=== PATIENT | female | born 1955 | race Caucasian/White ===

== ENCOUNTER 2019-12-27 13:38 | Outpatient (CLI) | payer BC, SELFPAY ==
--- NOTE | ~2019-12-27 | MM_ITS ---
EXAMINATION: MM screening josé BI w norbert HISTORY: Screening mammogram TECHNIQUE: Craniocaudal and mediolateral oblique 3-D tomosynthesis images were obtained and synthetic 2-D images were generated. CAD analysis was submitted and interpreted. COMPARISON: 11/29/2018, 08/27/2016, 06/26/2015 bilateral digital screening mammogram examinations BREAST PARENCHYMAL COMPOSITION: The breasts are almost entirely fatty. FINDINGS: There is no evidence of suspicious mass, calcification, or architectural distortion to sugg est malignancy in either breast. There has been no suspicious interval change. IMPRESSION: 1. No mammographic evidence of malignancy. 2. Recommend routine screening mammography in one year. BI-RADS Category 1: Negative Reviewed, dictated and finalized at location A.
== END 2019-12-27 13:39 | disposition home or self-care (01) ==
LOC: ANHIMG 13:40
PROVIDERS: PCP Family Medicine Adolescent Medicine; Visit Provider Obstetrics & Gynecology
DX: Z12.31 Encounter for screening mammogram for malignant neoplasm of breast (principal)
CPT/HCPCS: 77063; 77067

== ENCOUNTER 2020-04-18 12:36 | Outpatient (CLI) | payer MEDICARE, BC, SELFPAY ==
--- NOTE | ~2020-04-18 | DEXA_ITS ---
Bone Density Report Name: Soni Guevara Age: 65 Sex: Female Ethnicity: White Date of : 1955 Indication: postmenopausal; hysterectomy; Referring Provider: Grey Barraza Study: Bone densitometry was performed. Exam Date: April 18, 2020 Accession number: [id number] Bone Density: Region BMD T-score Z-score Classification AP Spine (L1, L2, L3) 0.896 -1.1 0.6 Osteopenia Femoral Neck (Left) 0.756 -0.8 0.7 Normal Total Hip (Left) 0.914 -0.2 1.0 Normal Total Hip Bilateral Avg 0.889 -0.4 0.8 Normal Femoral Neck (Right) 0.711 -1.2 0.3 Osteopenia Total Hip (Right) 0.863 -0.6 0.6 Normal World Health Organization criteria for BMD impression classify patients as: Normal (T-score at or above -1.0), Osteopenia (T-score between -1.0 and -2.5), or Osteoporosis (T-score at or below -2.5). 10-year Fracture Risk(1): Major Osteoporotic Fracture 8.3% Hip Fracture 1.2% Reported Risk Factors: [place] (), Neck BMD=0.711, BMI=27.4, smoking (1) FRAX(R) Version 3.08. Fracture probability calculated for an untreated patient. Fracture probability may be lower if the patient has received treatment. Previous Exams: Region Exam Age BMD T-score BMD Change BMD Change Date g/cm2 vs Baseline vs Previous AP Spine(L1, L2, L3) 04/18/2020 65 0.896 -1.1 -0.332(-27.0%) -0.273(-23.4%) 12/01/2011 56 1.170 1.4 -0.058(-4.8%)# -0.073(-5.8%)# 10/23/2009 54 1.242 2.0 0.014(1.2%) 0.014(1.2%) 09/07/2007 52 1.228 1.9 Total Hip(Left) 04/18/2020 65 0.914 -0.2 -0.211(-18.8%) -0.213(-18.9%) 12/01/2011 56 1.127 1.5 0.002(0.1%)# 0.018(1.6%)# 10/23/2009 54 1.109 1.4 -0.016(-1.4%) -0.016(-1.4%) 09/07/2007 52 1.125 1.5 Total Hip(Right) 04/18/2020 65 0.863 -0.6 -0.174(-16.8%) -0.134(-13.5%) 12/01/2011 56 0.998 0.5 -0.040(-3.9%)# -0.067(-6.3%)# 10/23/2009 54 1.064 1.0 0.027(2.6%) 0.027(2.6%) 09/07/2007 52 1.038 0.8 *Denotes significance at 95% confidence level, LSC for AP Spine = 0.022 g/cm2, LSC for Total Hip = 0.027 g/cm2 Clinical Information Provided by Patient: Smokes Has the following medical conditions: Hysterectomy Patient maximum height was 67 No regular weight bearing exercise Drinks caffeinated beverages Onset of menses at age 13 Number of children 3 Impression: The patient has low bone mass, based on the Right Femoral Neck T-score. The patient has an estim
== END 2020-04-18 12:37 | disposition home or self-care (01) ==
LOC: ANHIMG 12:39
PROVIDERS: PCP Family Medicine Adolescent Medicine; Visit Provider Family Medicine Adolescent Medicine
DX: N95.1 Menopausal and female climacteric states (principal); M85.851 Other specified disorders of bone density and structure, right thigh; M85.88 Other specified disorders of bone density and structure, other site
CPT/HCPCS: 77080

== ENCOUNTER 2021-04-10 01:07 | Day surgery (SDC) | payer MEDICARE, SELFPAY ==
[2021-03-27 15:07] VITALS: BMI 27.1
--- NOTE | 2021-04-09 11:33 | PM.HPGS ---
History of Present Illness History of Present Illness Consent: Risks, benefits, and alternatives have been discussed and questions answered. Patient agrees to proceed with procedure. Chief complaint: neoplasm screening Narrative: Soni Guevara is a 66 year old female Referred for colon cancer screening Review of Systems Review of Systems: All systems reviewed & are unremarkable except as noted in HPI and below PMFSH Past Medical History Medical History Diabetes type 2, controlled Hypertension Mixed hyperlipidemia Surgical History Surgical History History of partial hysterectomy Family History Family History Sibling , age 47 Acute myocardial infarction Heart disease Hypertension Mother Acute myocardial infarction Heart disease Grandparent Breast cancer Father Diabetes mellitus Social History Social History Years smoked: 10 Smoking status: Current every day smoker Tobacco type: cigarettes Alcohol intake: current Alcohol use details: Socially - 1-2 times per month Living arrangements: with family Additional living arrangements comments: Additional occupation/education comments: Retiring in july, Formerly [employer] Gender identity (if verbalized by the patient): Female Sexual Orientation (if Verbalized by the Patient): Straight or Heterosexual Spiritual care concerns: No Agree to blood products: Yes Meds Home Medications and Allergies Home Medications Medication Instructions Recorded Confirmed Type atorvastatin 10 mg tablet 10 mg PO DAILY #90 tablet 03/17/21 03/27/21 Rx bupropion HCl 150 mg tablet,12 hr 150 mg PO BID #180 tablet 03/17/21 03/27/21 Rx sustained-release lisinopril 20 mg tablet 20 mg PO DAILY #90 tablet 03/17/21 03/27/21 Rx metformin 500 mg tablet 500 mg PO DAILY #90 tablet 03/17/21 03/27/21 Rx Allergies Allergy/AdvReac Type Severity Reaction Status Date / Time No Known Allergies Allergy Mild Verified 04/10/21 07:53 Exam Resp: Auscultation: clear to auscultation bilaterally Cardio: Rate: regular rate Rhythm: regular rhythm GI: GI Palp: Yes Soft to palpation and No Tenderness to palpation present (GI) Assessment and Plan Assessment and plan (1) Colon cancer screening: Code(s): Z12.11 - Encounter for screening for malignant neoplasm of colon Status: Acute Assessment and Plan: Colonoscopy with possible biopsy or polypectomy or cautery or injection of substances.
[2021-04-10 07:54] VITALS: BP 122/65; PULSE 87; RESP 16; TEMP 36.7; O2SAT 100
[2021-04-10] MEDS: LACTATED RINGERS 1,000 ML 150 ML IV CONT (08:13)
[2021-04-10 08:17] LABS: Glucose Point of Care 218 mg/dl (65-105)
--- NOTE | 2021-04-10 08:30 | WPDANESEPPF ---
Anes - Initial Pre Proc Eval Procedure: Operation Date: 04/10/21 09:00 Proposed Procedures p Screening Colonoscopy - Pérez Craig MD Date/Time: 04/10/21 08:30 Surgeon: Pérez Craig MD Pre Op Diagnosis: neoplasm screening Patient Data Age: 66 Gender: F Height: 1.7 m Weight: 77.3 kg Last Vital Signs Temp 36.7 C 04/10/21 07:54 Pulse 87 04/10/21 07:54 Resp 16 04/10/21 07:54 BP 122/65 04/10/21 07:54 Pulse Ox 100 04/10/21 07:54 Allergies Allergy/AdvReac Type Severity Reaction Status Date / Time No Known Allergies Allergy Mild Verified 04/10/21 07:53 Home Medications Medication Instructions Recorded Confirmed Type atorvastatin 10 mg tablet 10 mg PO DAILY #90 tablet 03/17/21 03/27/21 Rx bupropion HCl 150 mg tablet,12 hr 150 mg PO BID #180 tablet 03/17/21 03/27/21 Rx sustained-release lisinopril 20 mg tablet 20 mg PO DAILY #90 tablet 03/17/21 03/27/21 Rx metformin 500 mg tablet 500 mg PO DAILY #90 tablet 03/17/21 03/27/21 Rx Laboratory Tests 04/10/21 08:04 POC Capillary Glucose 218 mg/dl H mg/dl (65-105) Patient hx anesthesia problems: none Family hx anesthesia problems: none Results Review: All pre-operative results and documents have been reviewed as part of the pre-operative evaluation. [facility] Past Medical History Medical History Diabetes type 2, controlled Hypertension Mixed hyperlipidemia Surgical History Surgical History History of partial hysterectomy Family History Family History Sibling , age 47 Acute myocardial infarction Heart disease Hypertension Mother Acute myocardial infarction Heart disease Grandparent Breast cancer Father Diabetes mellitus Social History Social History Years smoked: 10 Smoking status: Current every day smoker Tobacco type: cigarettes Alcohol intake: current Alcohol use details: Socially - 1-2 times per month Living arrangements: with family Additional living arrangements comments: Additional occupation/education comments: Retiring in july, [employer] Gender identity (if verbalized by the patient): Female Sexual Orientation (if Verbalized by the Patient): Straight or Heterosexual Spiritual care concerns: No Agree to blood products: Yes Anes - Eval Final PreProcedure Day of Procedure 04/10/21 08:30 Patient weight: overweight Heart: regular rate and rhythm Lungs: clear to auscultation Airway: Mallampati scale class II Neurological: alert and oriented Last oral intake: >/= 8 hours ASA classification: III Emergent: no Anesthetic plan: proceed Anesthesia type and monitoring: general GIVS and standard monitoring Results Review: All pre-operative results and documents have been reviewed as part of the pre-operative evaluation. Informed Consent: The patient's anesthetic plan and its attendant risks and benefits were discussed with the patient/family/POA. Questions were solicited and answers provided to the satisfaction of the patient/family/POA.
[2021-04-10 09:17] VITALS: BP 111/56; PULSE 79; RESP 21; O2SAT 98
[2021-04-10 09:27] VITALS: BP 93/37; PULSE 75; RESP 22; O2SAT 100
[2021-04-10 09:37] VITALS: BP 123/77; PULSE 74; RESP 19; O2SAT 100
== END 2021-04-10 09:45 | disposition home or self-care (01) ==
PROVIDERS: PCP Family Medicine Adolescent Medicine; Visit Provider Internal Medicine Gastroenterology
PROC: 0DJD8ZZ Inspection of Lower Intestinal Tract, Via Natural or Artificial Opening Endoscopic (ICD-10-PCS; CPT 45378; principal; 2021-04-10 09:00)
DX: Z12.11 Encounter for screening for malignant neoplasm of colon (principal); K57.30 Diverticulosis of large intestine without perforation or abscess without bleeding; K62.1 Rectal polyp; E11.9 Type 2 diabetes mellitus without complications; I10 Essential (primary) hypertension; E78.2 Mixed hyperlipidemia; Z79.84 Long term (current) use of oral hypoglycemic drugs; F17.210 Nicotine dependence, cigarettes, uncomplicated
CPT/HCPCS: 45385; 82948; 88305; J2704; J7120

== ENCOUNTER 2021-07-18 15:36 | Outpatient (CLI) | payer MEDICARE, SELFPAY ==
--- NOTE | ~2021-07-18 | MM_ITS ---
EXAMINATION: MM screening josé BI w norbert HISTORY: Screening TECHNIQUE: Craniocaudal and mediolateral oblique 3-D tomosynthesis images were obtained and synthetic 2-D images were generated. CAD analysis was submitted and interpreted. COMPARISON: Comparison to multiple prior studies sequentially, with oldest reviewed study dated 11/30. BREAST PARENCHYMAL COMPOSITION: There are scattered areas of fibroglandular density. FINDINGS: There is no evidence of suspicious mass, calcification, or architectural distortion to sugg est malignancy in either breast. There has been no suspicious interval change. IMPRESSION: 1. No mammographic evidence of malignancy. 2. Recommend routine screening mammography in one year. BI-RADS Category 1: Negative Reviewed, dictated and finalized at location A.
== END 2021-07-18 15:37 | disposition home or self-care (01) ==
PROVIDERS: PCP Family Medicine Adolescent Medicine; Visit Provider Obstetrics & Gynecology
DX: Z12.31 Encounter for screening mammogram for malignant neoplasm of breast (principal)
CPT/HCPCS: 77063; 77067

== ENCOUNTER 2022-09-03 09:43 | Outpatient (CLI) | payer MEDICARE, SELFPAY ==
--- NOTE | ~2022-09-03 | MM_ITS ---
EXAMINATION: MM screening josé BI w norbert HISTORY: Screening mammogram TECHNIQUE: Craniocaudal and mediolateral oblique 3-D tomosynthesis images were obtained and synthetic 2-D images were generated. CAD analysis was submitted and interpreted. COMPARISON: 07/18/2021, 12/27/2019, 11/25/2018 bilateral screening mammogram examinations BREAST PARENCHYMAL COMPOSITION: The breasts are almost entirely fatty. FINDINGS: There is no evidence of suspicious mass, calcification, or architectural distortion to sugg est malignancy in either breast. There has been no suspicious interval change. IMPRESSION: 1. No mammographic evidence of malignancy. 2. Recommend routine screening mammography in one year. BI-RADS Category 1: Negative Reviewed, dictated and finalized at location A.
== END 2022-09-03 09:44 | disposition home or self-care (01) ==
PROVIDERS: PCP Family Medicine Adolescent Medicine; Visit Provider Obstetrics & Gynecology
DX: Z12.31 Encounter for screening mammogram for malignant neoplasm of breast (principal)
CPT/HCPCS: 77063; 77067

== ENCOUNTER 2023-01-09 18:36 | Emergency (ER) | payer MEDICARE, SELFPAY ==
--- NOTE | ~2023-01-09 | CT_ITS ---
EXAMINATION: CT ankle RT wo con, CT foot RT wo con DATE: 01/09/2023 21:03 INDICATION: Right calcaneal fracture post fall TECHNIQUE: High resolution computed tomography (CT) of the right ankle was performed without intravenous contras t. Additional sagittal and coronal reconstructions were performed. Automated exposure control and ite rative reconstruction technique were employed. The dose-length product was 433.59 mGy-cm. 2. High resolution CT of the right foot was performed without intravenous contrast. Additional sagitt al and coronal reconstructions were performed. Automated exposure control and iterative reconstructio n technique were employed. The dose-length product was 377.91 mGy-cm. COMPARISON: Radiographs dated 01/09/2023 FINDINGS: There is a comminuted joint depression type fracture of the calcaneus. There are several fracture virginie mya involving the posterior facet of the subtalar joint. This includes a fracture line extending ante roposteriorly across the central aspect of the posterior facet with up to 3-4 mm fracture gap posteri elida and with up to 3 mm step-off anteriorly. There is minimally displaced fracture extending across the base of the sustentaculum krisatl as well as an additional more anterior sagittally directed minimal ly displaced fracture plane which extends to involve the medial aspect of the articular surface at th e calcaneocuboid joint. There is a small minimally displaced fracture arising from the lateral proces s of the calcaneus along the tip of the lateral malleolus. No other fractures identified. Mild osteoa rthritis at the ankle joint as well as the first metatarsophalangeal and a few tarsal metatarsal join ts. Moderate-sized ankle and subtalar joint effusion. IMPRESSION: 1. Comminuted joint depression type calcaneal fracture, type II B by Camara classification. 2. Minimally displaced fracture of the lateral process of the calcaneus along the tip of the lateral malleolus. Reviewed, dictated and finalized at location A. IMPRESSION: 1. Comminuted joint depression type calcaneal fracture, type II B by Camara cl assification. 2. Minimally displaced fracture of the lateral process of the calcaneus along t he tip of the lateral malleolus.
--- NOTE | ~2023-01-09 | XR_ITS ---
EXAMINATION: XR ankle RT min 3V, XR foot RT min 3V DATE: 01/09/2023 19:06 INDICATION: Right foot and ankle pain post fall from ladder TECHNIQUE: 1. Anteroposterior, mortise, additional oblique and lateral view of the right ankle were obtained. 2. Dorsoplantar, two oblique and lateral views of the right foot were obtained. COMPARISON: None. FINDINGS: Comminuted joint depression type fracture of the right calcaneus with flattening of Boehler's angle. This includes an up to 3 mm wide sagittally oriented fracture plane which extends to the lateral side of the articular surface at the calcaneocuboid articulation. There is also widening of the posterior facet of the subtalar joint. No other fractures identified. 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 Small p lantar calcaneal spur. Soft tissue swelling about the hindfoot. The soft tissues are unremarkable. IMPRESSION: 1. Comminuted intra-articular fracture of the calcaneus. Reviewed, dictated and finalized at location A. IMPRESSION: 1. Comminuted intra-articular fracture of the calcaneus.
[2023-01-09 18:37] VITALS: BP 184/93; PULSE 91; RESP 16; TEMP 36.8; O2SAT 100
--- NOTE | 2023-01-09 20:49 | PC.NURSE ---
Pt taken to CT via w/c at this time.
--- NOTE | 2023-01-09 21:08 | ED.GENADULT ---
HPI - General Adult General Chief complaint: Extremity Injury, Lower Stated complaint: RLE injury after fall Time Seen by Provider: 01/09/23 19:51 History of Present Illness HPI narrative: Patient is a six 7-year-old female who presents to the emergency department this afternoon after falling off of a 6 foot ladder. Patient states that she fell backward and then landed on her right foot. Patient immediately felt a sharp pain in her right heel. She denies any additional injuries and denies any pain in the rest of her joints. Patient was unable to get back up or put any weight on her right foot. She denies hitting her head or losing any consciousness. Patient also denies any blood thinner use. Patient denies any chest pain, shortness of breath, nausea, vomiting, abdominal pain, dysuria, hematuria, constipation, diarrhea, melena, hematochezia, fevers or chills. She also denies any headaches, dizziness, lightheadedness, blurry visions, focal weakness, numbness and or tingling. There are no other modifying, alleviating, or precipitating factors at this time. Related Data Allergies Allergy/AdvReac Type Severity Reaction Status Date / Time No Known Allergies Allergy Mild Verified 01/09/23 19:20 Review of Systems Review of Systems: All systems are reviewed and are negative unless stated otherwise in the HPI. [facility] Past Medical History Medical History Diabetes type 2, controlled Hypertension Mixed hyperlipidemia Screening mammogram, encounter for Surgical History Surgical History H/O colonoscopy (~05/06/21) History of ovarian cystectomy (03/14/03) lscope lt ovarian cystectomy/adhesiolysis History of total abdominal hysterectomy (04/18/03) YESICA BSO--extensive adhesiolysis Family History Family History Sibling , age 47 Acute myocardial infarction Heart disease Hypertension Mother Acute myocardial infarction Heart disease Grandparent Breast cancer Father Diabetes mellitus Hypertension Heart disease Social History Social History Smoking packs per day: 0.5 Smoking cigarettes per day: 10.0 Years smoked: 10 Smoking pack-years: 5.00 Smoking status: Current every day smoker Tobacco type: cigarettes Alcohol intake: current Alcohol use details: Socially - 1-2 times per month Substance use: never Substance use type: does not use Living arrangements: other Additional living arrangements comments: Occupation/Education: retired 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 HEENT: PERRL, no rhinorrhea, no post nasal drip, oropharynx clear. Neck: Trachea midline, no JVD, no lymphadenopathy. Cardiovascular: Regular rate and rhythm, no murmurs, rubs or gallops, no peripheral edema. Respiratory: Clear to auscultation bilaterally, no tachypnea, no wheezing, no rhonchi, no rubs, no respiratory distress. Abdomen: Soft, nontender, nondistended, no rebound, no guarding, no peritoneal signs. Musculoskeletal: Significant swelling surrounding the right ankle joint, no overlying abrasion or laceration or evidence of an open fracture, right PT pulse difficult to palpate due to swelling, intact right DP pulse, intact sensation over the dorsum, plantar, and webspace between the first and second metatarsal, no tenderness to palpation over the proximal fibula, patient is neurovascularly intact and able to move all 5 of her toes in her right foot. Back: No midline tenderness t
[2023-01-09] MEDS: HYDROcodone/acetaminophen (*CRX) 5-325 MG TABLET 1 TAB PO (21:52)
--- NOTE | 2023-01-15 19:04 | PC.NURSE ---
Late Entry VOR[facility] by Dr. Nieves place short leg posterior and stirrup splint to right leg on 01/09/23. Placed on 01/09/23 at 2155.
== END 2023-01-09 22:08 | disposition home or self-care (01) ==
PROVIDERS: Emergency Provider Emergency Medicine; PCP Family Medicine Adolescent Medicine
DX: S92.061A Displaced intraarticular fracture of right calcaneus, initial encounter for closed fracture (principal); S82.61XA Displaced fracture of lateral malleolus of right fibula, initial encounter for closed fracture; E11.9 Type 2 diabetes mellitus without complications; I10 Essential (primary) hypertension; E78.2 Mixed hyperlipidemia; F17.210 Nicotine dependence, cigarettes, uncomplicated; Z90.710 Acquired absence of both cervix and uterus; Z90.722 Acquired absence of ovaries, bilateral; Z90.79 Acquired absence of other genital organ(s); W11.XXXA Fall on and from ladder, initial encounter
CPT/HCPCS: 29515; 73610; 73630; 73700; 99284; A9270

== ENCOUNTER 2023-04-29 13:39 | Outpatient (CLI) | payer MEDICARE, SELFPAY ==
--- NOTE | ~2023-04-29 | DEXA_ITS ---
Bone Density Report Name: LILIANA SHEA Age: 68 Sex: Female Ethnicity: White Date of : 1955 Indication: postmenopausal; screening for osteoporosis; hysterectomy; Referring Provider: HAL CROW Study: Bone densitometry was performed. Exam Date: April 29, 2023 Accession number: [id number] Bone Density: Region BMD T-score Z-score Classification AP Spine(L2, L3, L4) 0.982 -0.9 1.2 Normal Femoral Neck (Left) 0.721 -1.2 0.5 Osteopenia Total Hip (Left) 0.945 0.0 1.4 Normal Femoral Neck (Right) 0.708 -1.3 0.4 Osteopenia Total Hip (Right) 0.782 -1.3 0.1 Osteopenia Total Hip Mean 0.863 -0.7 0.8 Normal World Health Organization criteria for BMD impression classify patients as: Normal (T-score at or above -1.0), Osteopenia (T-score between -1.0 and -2.5), or Osteoporosis (T-score at or below -2.5). 10-year Fracture Risk(1): Major Osteoporotic Fracture 9.2% Hip Fracture 1.6% Reported Risk Factors: [place] (), Neck BMD=0.708, BMI=25.5, smoking (1) FRAX(R) Version 3.08. Fracture probability calculated for an untreated patient. Fracture probability may be lower if the patient has received treatment. Previous Exams: Region Exam Age BMD T-score BMD Change BMD Change Date g/cm2 vs Baseline vs Previous Total Hip(Left) 04/29/2023 68 0.945 0.0 0.031 (3.4%)# 0.031 (3.4%)# 04/18/2020 65 0.914 -0.2 Total Hip(Right) 04/29/2023 68 0.782 -1.3 -0.082 (-9.5%) -0.082 (-9.5%) 04/18/2020 65 0.863 -0.6 *Denotes significance at 95% confidence level, LSC for Total Hip = 0.027 g/cm2 # Denotes dissimilar scan types or analysis methods Clinical Information Provided by Patient: Smokes Has used the following medications: Vitamin D, Calcium Has the following medical conditions: Hysterectomy Patient maximum height was 66 No regular weight bearing exercise Drinks caffeinated beverages Onset of menses at age 14 Number of children 3 Impression: The patient has low bone mass, based on the Right Total Hip T-score. The patient has an estimated ten-year risk of hip fracture of 1.6% and an estimated ten-year risk of major fracture of 9.2%, based on the WHO FRAX algorithm. The patient has risk factors, including: smoking. No significant bone loss was observed. Discussion: BONE DENSITY IS LOW AT ONE OR MORE SKELETAL SITES. This patient's lowest T-score is low at one or more skeletal sites. It meets the World Health Organization's (WHO) criteria for ?low bon
== END 2023-04-29 13:40 | disposition home or self-care (01) ==
PROVIDERS: PCP Family Medicine Adolescent Medicine; Visit Provider Family Medicine Adolescent Medicine
DX: Z78.0 Asymptomatic menopausal state (principal); M85.852 Other specified disorders of bone density and structure, left thigh; M85.851 Other specified disorders of bone density and structure, right thigh
CPT/HCPCS: 77080

== ENCOUNTER 2023-10-06 14:43 | Outpatient (CLI) | payer MEDICARE, SELFPAY ==
--- NOTE | ~2023-10-06 | MM_ITS ---
EXAMINATION: MM screening josé BI w norbert HISTORY: Screening TECHNIQUE: Craniocaudal and mediolateral oblique 3-D tomosynthesis images were obtained and synthetic 2-D images were generated. CAD analysis was submitted and interpreted. COMPARISON: Comparison to multiple prior studies sequentially, with oldest reviewed study dated 06/25. BREAST PARENCHYMAL COMPOSITION: Not dense: There are scattered areas of fibroglandular density. FINDINGS: There is no evidence of suspicious mass, calcification, or architectural distortion to sugg est malignancy in either breast. There has been no suspicious interval change. IMPRESSION: 1. No mammographic evidence of malignancy. 2. Recommend routine screening mammography in one year. BI-RADS Category 1: Negative Reviewed, dictated and finalized at location B.
== END 2023-10-06 14:44 | disposition home or self-care (01) ==
LOC: ANHIMG 14:45
PROVIDERS: PCP Family Medicine Adolescent Medicine; Visit Provider Obstetrics & Gynecology
DX: Z12.31 Encounter for screening mammogram for malignant neoplasm of breast (principal)
CPT/HCPCS: 77063; 77067

== ENCOUNTER 2024-10-09 08:49 | Outpatient (CLI) | payer MEDICARE, SELFPAY ==
--- NOTE | ~2024-10-09 | MM_ITS ---
EXAMINATION: MM screening josé BI w norbert HISTORY: Screening TECHNIQUE: Craniocaudal and mediolateral oblique 3-D tomosynthesis images were obtained and synthetic 2-D images were generated. CAD analysis was submitted and interpreted. COMPARISON: Comparison to multiple prior studies sequentially, with oldest reviewed study dated 08/27. BREAST PARENCHYMAL COMPOSITION: The breasts are almost entirely fatty. FINDINGS: There is no evidence of suspicious mass, calcification, or architectural distortion to sug gest malignancy in either breast. IMPRESSION: 1. No mammographic evidence of malignancy. 2. Recommend routine screening mammography in one year. BI-RADS Category 1: Negative Reviewed, dictated and finalized at location B.
--- OUTSIDE RECORDS SUMMARY | 2024-10-09 08:59 | XMS_ITS | Continuity of Care Document ---
Author Name [facility] Organization [facility] Care Team Providers Care Closing Supervisor Name Role Phone [facility] Unavailable Unavailable Social History Combined list of available smoking, tobacco, and other social history from [facility] and [facility] facilities. Social History Type Response Date Comment Sourc e This section is an empty social history section. [facility]
--- OUTSIDE RECORDS SUMMARY | 2024-10-09 08:59 | XMS_ITS | Clinical Summary ---
Author Organization [facility] Address [address] [facility] [place] [address] Care Team Providers Care Airplane Fueler Name Role Phone Grey Barraza MD Primary Care Provider + Source Comments [facility]non-owned Affiliates and Associated Physician Practices is amultiple site organization consisting of ambulatory clinics and hospital sitesin [place], [place], [place] and [place]. This disclosure is being madepursuant to the Care Everywhere program and may not contain all information available regarding this patient. Last updated 17.[facility] Allergies No known active allergies Medications * Be aware that medications may not be up to date on this document. Alwaysverify current medications with the patient. metFORMIN (Glucophage) 500 MG tablet Take 2 (two) tablets by mouth 2 times daily with morning and evening meal Active lisinopril (Prinivil; Zestril) 20 MG tablet Take 1 (one) tablet by mouth once daily Active atorvastatin (Lipitor) 20 MG tablet Take 1 (one) tablet by mouth at bedtime Active Social History Tobacco Use Types Packs/Day Years Used Date Smoking Tobacco: Every Day Cigarettes Smokeless Tobacco: Never Alcohol Use Standard Drinks/Week Comments Yes 0 (1 standard drink = 0.6 oz pur e alcohol) socially Comments No Sex and Gender Information Value Date Recorded Sex Assigned at Not on file Legal Sex Female 10:52 AM COMMANDER POLICE RESERVES Gender Identity Not on file Sexual Orientation Not on file Last Filed Vital Signs Vital Sign Reading Time Taken Comments Blood Pressure 144/74 03/26/2023 3:45 PM COMMANDER POLICE RESERVES Pulse 80 03/26/2023 3:40 PM COMMANDER POLICE RESERVES Temperature 36.9 C (98.5 F) 03/26/2023 3:40 PM COMMANDER POLICE RESERVES Respiratory Rate 18 03/26/2023 3:45 PM COMMANDER POLICE RESERVES Oxygen Saturation 93% 03/26/2023 3:50 PM COMMANDER POLICE RESERVES Inhaled Oxygen Concentration - - Weight 72.6 kg (160 lb) 03/26/2023 11:23 AM COMMANDER POLICE RESERVES Height 170.2 cm (5' 7) 03/26/2023 11:23 AM COMMANDER POLICE RESERVES Body Mass Index 25.06 03/26/2023 11:23 AM COMMANDER POLICE RESERVES Plan of Treatment Health Maintenance Due Date Last Done Comments BONE DENSITY TESTING 1955 COLOGUARD (AGES 45-75) - COL ON CA SCREENING 1955 COLON MONITORING 1955 COLONOSCOPY - COLON CA SCREENING 1955 CT COLONOGRAPHY - COLON CA SCREENING 1955 Colorectal Cancer Screening 1955 FIT - COLON CA SCREENING 1955 FLEX SIG - COLON CA SCREENING 1955 MAMMOGRAM 1955 HEPATITIS C SCREENING 03/12/1973 DTAP/TDAP/TD VACCINES (1 - Tdap) 1974 PNEUMOCOCCAL VACCINE 50+ (1 of 2 - PCV) 1974 ZOSTER VACCINE (1 of 2) 2005 COVID-19 VACCINE (2023-2 5 season) 2023 DEPRESSION SCREENING 03/08/2024 MEDICARE AWV CALENDAR YEAR 2024 INFLUENZA VACCINE (#1) 2024 Respiratory Syncytial Virus (RSV) Vaccine Pt: or over 60 yrs (1 - 1-dose 75+ series) 2030 HEPATITIS B VACCINE Aged Out No longe r eligible based on patient's age to complete this topic HIB VACCINE Aged Out No longer eligi ble based on patient's age to complete this topic HPV VACCINE Aged Out No longer eligi ble based on patient's age to complete this topic MENINGOCOCCAL (Group B) VACC INE SHARED DECISION-MAKING Aged Out No longer eligibl e based on patient's age to complete this topic MENINGOCOCCAL GROUPS A/C/Y/W VACCINE Aged Out No longer eligible b ased on patient's age to complete this topic Medical Devices Implanted Type Area Desk Reporter Device Identifier Shelf Expiration Date Model / Serial / Lot Allosync Pure Implanted:Qty: 1 on 03/26/2023 by Sandy Vicente DPM at [facility] Right: Foot ABS-2010-0 5 / / Kit Bngf 3cc Oct Inj Implanted:Qty: 1 on 03/26/2023 by Sandy Vicente DPM at [facility] Right: Foot [employer] 08/02/2025 [id number] / / [id number] Screw 6.5mm 80mm P/T Comp Hdls Bone Implanted:Qty: 2 on 03/26/2023 by Sandy Vicente DPM at [facility] Right: Foot [employer] [id number] / / Insurance TNA MEDICARE ADV Care Teams Airplane Fueler Relationship Specialty Start Date End Date Grey Barraza MD [address] [place] [id number] PCP - General 04/15/21
--- OUTSIDE RECORDS SUMMARY | 2024-10-09 08:59 | XMS_ITS | Clinical Summary ---
Author Organization [facility] [address] Address [address] [place] [address] Care Team Providers Care Mechanical Project Manager Name Role Phone Grey Barraza MD Primary Care Prov ider Allergies No known active allergies Social History Tobacco Use Types Packs/Day Years Used Date Smoking Tobacco: Never Assessed Personal Safety Answer Date Recorded Getting School Help Needed Not on file 05/22 Comments Unknown Sex and Gender Information Value Date Recorded Sex Assigned at Not on file Legal Sex Female 8:30 AM CDT Gender Identity Not on file Sexual Orientation Not on file Plan of Treatment Not on file Insurance ANTH TRADITIONAL Care Teams Mechanical Project Manager Relationship Specialty Start Date End Date Grey Barraza MD [address] [place] [address] PCP - General Family Medicine 12/14/18
--- OUTSIDE RECORDS SUMMARY | 2024-10-09 08:59 | XMS_ITS | Clinical Summary ---
Author Organization [facility] Address [address] [place] [id number] Care Team Providers Care Sat Act Instructor Name Role Phone Grey Barraza MD Primary Care Provider [phone] Active Problems Problem Noted Date Diagnosed Date Encounter for other orthopedic aftercare 024 Fracture of right calcaneus 06/17/2023 Social History Tobacco Use Types Packs/Day Years Used Date Smoking Tobacco: Never Assessed Comments Unknown Sex and Gender Information Value Date Recorded Sex Assigned at Not on file Legal Sex Female 4:43 PM CDT Gender Identity Not on file Sexual Orientation Not on file Plan of Treatment Health Maintenance Due Date Last Done Comments Colorectal Cancer Screening Colonoscopy (10 Years) 1955 Hepatitis C 1973 Mammogram Screening 1995 Annual Medicare Wellness Visit 2020 Dexa Scan (General) 2020 COVID-19 Vaccine (3 - 2023-2 5 season) 2023 06/03/2020, 05/06/2020 RSV Immunization or 60+ Years (1 - 1-dose 75+ series) 2030 DTaP, Tdap and Td Vaccines ( 2 - Td or Tdap) 07/28/2032 07/28/2022 Pneumococcal Vaccine: 50+ Years Completed 07/28/2022, 01/22/2022 Zoster Vaccines Completed 07/28/2022, 05/24/2022 Meningococcal B Vaccine Aged Out No l onger eligible based on patient's age to complete this topic Meningococcal Vaccine Aged Out No gage marc eligible based on patient's age to complete this topic RSV Immunizations Under 20 Months Aged Out No longer eligible b ased on patient's age to complete this topic Insurance AETNA Care Teams Sat Act Instructor Relationship Specialty Start Date End Date Grey Barraza MD [address] [address] PCP - General FAMILY PRACTICE 06/17/23
--- OUTSIDE RECORDS SUMMARY | 2024-10-09 08:59 | XMS_ITS | Referral Summary ---
Author Organization [facility] [address] Address [address] [place] [address] Care Team Providers Care Green Plumber Name Role Phone Grey Barraza MD Primary [...] on file Insurance ANTH TRADITIONAL Care Teams Green Plumber Relationship Specialty Start Date End Date Grey Barraza MD [address] [place] [address] PCP - General Family Medicine 12/14/18
== END 2024-10-09 08:50 | disposition home or self-care (01) ==
LOC: ANHIMG 08:50
PROVIDERS: PCP Family Medicine Adolescent Medicine; Visit Provider Family Medicine Adolescent Medicine
DX: Z12.31 Encounter for screening mammogram for malignant neoplasm of breast (principal)
CPT/HCPCS: 77063; 77067

== ENCOUNTER 2025-02-23 09:33 | Outpatient (CLI) | payer MEDICARE, SELFPAY ==
--- NOTE | 2025-02-23 09:49 | ECHO_ITS ---
Patient Info Name: Soni Guevara Age: 69 years : 1955 Gender: Female Ht: 67 in Wt: 168 lbs BSA: 1.91 m2 HR: 68 bpm BP: 125 / 76 mmHg Heart Rhythm: Sinus Rhythm Technical Quality: Fair Exam Date: 02/23/2025 9:55 AM Patient Status: O Admit Date: 02/23/2025 Exam Type: CA echo doppler color flow Complete two-dimensional, color flow and Doppler transthoracic echocardiogram is performed. Transit Proof Machine Operator: Yuli Anguiano Attending Provider: Marce Bryant Summary 1. Complete two-dimensional, color flow and Doppler transthoracic echocardiogram is performed. 2. Left ventricular chamber dimension is normal. 3. Left ventricular systolic function is hyperdynamic, estimated at >70. 4. There is mild concentric increased left ventricular wall thickness. 5. The left ventricular diastolic function is grade I diastolic dysfunction. 6. E/e' 11 is mildly elevated. 7. Left atrial chamber dimension is moderately enlarged. 8. There is severe aortic valve sclerosis. 9. There is moderate aortic valve stenosis with a peak velocity of 317 cm/s, mean gradient of 24 mmHg, and aortic valve area of 1.3 cm2. 10. The mitral valve has a severely calcified annulus. 11. There is trace tricuspid valve regurgitation. 12. No pulmonary hypertension, estimated pulmonary arterial systolic pressure is 29 mmHg. Left Ventricle E/e' 11 is mildly elevated. Left ventricular chamber dimension is normal. Left ventricular systolic function is hyperdynamic, estimated at >70. There is mild concentric increased left ventricular wall thickness. The left ventricular diastolic function is grade I diastolic dysfunction. Right Ventricle Right ventricular chamber dimension is normal. Right ventricular systolic function is normal and with normal TAPSE 2.2 cm. Left Atria Left atrial chamber dimension is moderately enlarged. Right Atria Right atrial chamber dimension is normal. Aortic Valve The aortic valve is trileaflet. There is severe aortic valve sclerosis. There is moderate aortic valve stenosis with a peak velocity of 317 cm/s, mean gradient of 24 mmHg, and aortic valve area of 1.3 cm2. There is no aortic valve regurgitation. Pulmonic Valve There is no pulmonic regurgitation. Mitral Valve The mitral valve has a severely calcified annulus. There is no mitral valve stenosis. There is no mitral valve regurgitation. Tricuspid Valve There is trace tricuspid valve regurgitation. No pulmonary hypertension, estimated pulmonary arterial systolic pressure is 29 mmHg. Pericardium/Pleural There is no pericardial effusion. Inferior Vena Cava Normal inferior vena cava with >50% collapse upon inspiration consistent with normal right atrial pressure, 5 mmHg. Aorta The aortic root size at the sinus of Valsalva is normal. Left Ventricular Outflow Tract Name Value Normal LVOT 2D LVOT Diameter 2.0 cm LVOT Doppler LVOT Peak Velocity 129 cm/s LVOT Peak Gradient 7 mmHg LVOT Mean Gradient 3 mmHg LVOT VTI 27 cm LVOT VTI/AV VTI Ratio 0.4 LVOT Stroke Volume 88 ml LVOT CO 5.5 l/min LVOT CI 2.9 l/min/m2 Pulmonic Valve Name Value Normal RVOT Doppler RVOT Peak Velocity 90 cm/s RVOT Peak Gradient 3 mmHg PV Doppler PV Peak Velocity 141 cm/s PV Peak Gradient 8 mmHg Mitral Valve Name Value Normal MV Diastolic Function MV E Peak Velocity 72 cm/s MV A Peak Velocity 86 cm/s MV E/A 0.8 MV Decel Time (PW) 298 ms MV Annular TDI MV E/e' (Septal) 12.7 MV E/e' (Lateral) 9.7 MV E/e' (Average) 11.2 Tricuspid Valve Name Value Normal TV Regurgitation Doppler TR Peak Velocity 243 cm/s TR Peak Gradient 24 mmHg Estimated PAP/RSVP RA Pressure 5 mmHg <=5 PA Systolic Pressure 29 mmHg <36 RV Systolic Pressure 29 mmHg <36 TV Annular TDI TV Lateral Umu s' Velocity 14.3 cm/s >=9.5 Aorta Name Value Normal Ascending Aorta Ao Root Diameter (MM) 3.0 cm Ao Root Diam Index (MM) 1.6 cm/m2 Aortic Valve Name Value Normal AV Doppler AV Peak Velocity 317 cm/s AV Peak Gradient 40 mmHg AV Mean Gradient 24 mmHg AV VTI 66 cm AV Area (Cont Eq VTI) 1.3 cm2 >=3.0 AV Area (Cont Eq Dominick) 1.3 cm2 AV DI (Dominick) 0.41 AV Regurgitation 2D LVOT Area 3.3 cm2 Ventricles Name Value Normal LV Dimensions 2D/MM IVS Diastolic Thickness (2D) 1.2 cm 0.6-1.0 LVID Diastole (2D) 4.6 cm 3.8-5.2 LVIW Diastolic Thickness (2D) 1.0 cm 0.6-0.9 LVID Systole (2D) 2.8 cm 2.2-3.5 LVOT Diameter 2.0 cm LV Mass (2D Cubed) 184.92 g 67.00-162.00 LV Mass Index (2D Cubed) 97 g/m2 43-95 Relative Wall Thickness (2D) 0.43 <=0.42 LV Fractional Shortening/Ejection Fraction 2D/MM LV Fractional Shortening (2D) 39 % 27-45 LV EF (2D Teichholz) 70 % LV Diastolic Volume (4C MOD) 69 ml LV EF (4C MOD) 76 % LV Diastolic Volume (2C MOD) 59 ml LV EF (2C MOD) 71 % LV Diastolic Volume (BP MOD) 64 ml 46-106 LV Diastolic Volume Index (BP MOD) 34 ml/m2 29-61 LV Systolic Volume (BP MOD) 17 ml 14-42 LV Systolic Volume Index (BP MOD) 9 ml/m2 8-24 LV EF (BP MOD) 73 % 54-74 LV Diastolic Length (4C) 7.8 cm LV Systolic Length (4C) 6.1 cm LV Stroke Volume (4C MOD) 53 ml Atria Name Value Normal LA Dimensions LA Dimension (MM) 3.6 cm 2.7-3.8 LA Volume (4C A-L) 113 ml LA Volume (BP A-L) 100 ml RA Dimensions RA Area (4C) 16.4 cm2 <=18.0 Report Signatures
--- OUTSIDE RECORDS SUMMARY | 2025-02-23 09:54 | XMS_ITS | Clinical Summary ---
Author Organization [facility] Address [address] [place] [address] Care Team Providers Care Oyster Tonger Name Role Phone Grey Barraza MD Primary Care Provider + Source Comments [facility],non-owned Affiliates and Associated Physician Practices is amultiple site organization consisting of ambulatory clinics and hospital sitesin [place], [place], [place] and [place]. This disclosure is being madepursuant to the Care Everywhere program and may not contain all information available regarding this patient. Last updated 17.[employer] [facility] Allergies No known active allergies Medications * [...] on file Legal Sex Female 10:52 AM MONITORING ENGINEER Gender Identity Not on file Sexual Orientation Not on file Last Filed Vital Signs Vital Sign Reading Time Taken Comments Blood Pressure 144/74 03/26/2023 3:45 PM MONITORING ENGINEER Pulse 80 03/26/2023 3:40 PM MONITORING ENGINEER Temperature 36.9 C (98.5 F) 03/26/2023 3:40 PM MONITORING ENGINEER Respiratory Rate 18 03/26/2023 3:45 PM MONITORING ENGINEER Oxygen Saturation 93% 03/26/2023 3:50 PM MONITORING ENGINEER Inhaled Oxygen Concentration - - Weight 72.6 kg (160 lb) 03/26/2023 11:23 AM MONITORING ENGINEER Height 170.2 cm (5' 7) 03/26/2023 11:23 AM MONITORING ENGINEER Body Mass Index 25.06 03/26/2023 11:23 AM MONITORING ENGINEER Plan of Treatment Health Maintenance Due Date [...] 1974 ZOSTER VACCINE (1 of 2) 2005 DEPRESSION SCREENING 03/08/2024 MEDICARE AWV CALENDAR YEAR 2024 COVID-19 VACCINE (1 - 2024-2 6 season) 2024 INFLUENZA VACCINE (#1) 2024 Respiratory Syncytial [...] this topic Medical Devices Implanted Type Area Protection Consultant Device Identifier Shelf Expiration Date Model / Serial / Lot Allosync Pure Implanted:Qty: 1 on 03/26/2023 by Sandy Vicente DPM at [facility][note 3] Right: Foot ABS-2010-0 5 / / Kit Bngf 3cc Oct Inj Implanted:Qty: 1 on 03/26/2023 by Sandy Vicente DPM at [facility][note 3] Right: Foot [employer] 08/02/2025 [id number] / / [id number] Screw 6.5mm 80mm P/T Comp Hdls Bone Implanted:Qty: 2 on 03/26/2023 by Sandy Vicente DPM at [facility][note 3] Right: Foot [employer] [id number] / / Insurance TNA MEDICARE ADV Care Teams Oyster Tonger Relationship Specialty Start Date End Date Grey Barraza MD [address] [place] [id number] PCP - General 04/15/21
--- OUTSIDE RECORDS SUMMARY | 2025-02-23 09:54 | XMS_ITS | Clinical Summary ---
Author Organization [facility] [address] Address [address] [place] [address] Care Team Providers Care Chute Greaser Name Role Phone Grey Barraza MD Primary [...] on file Insurance ANTH TRADITIONAL Care Teams Chute Greaser Relationship Specialty Start Date End Date Grey Barraza MD PCP - General Family Medicine 12/14/18
== END 2025-02-23 09:34 | disposition home or self-care (01) ==
PROVIDERS: PCP Nurse Practitioner Family; Visit Provider Nurse Practitioner Family
DX: R01.1 Cardiac murmur, unspecified (principal); I10 Essential (primary) hypertension; E78.2 Mixed hyperlipidemia; E11.9 Type 2 diabetes mellitus without complications; I35.0 Nonrheumatic aortic (valve) stenosis
CPT/HCPCS: 93306